=== PATIENT | male | born 2000 | race Caucasian/White ===

== ENCOUNTER 2020-09-10 12:27 | Emergency (ER) | payer MEDICAID, SELFPAY ==
[2020-09-10 12:29] VITALS: BP 125/67; PULSE 78; RESP 20; TEMP 36.8; O2SAT 100
--- NOTE | 2020-09-10 14:59 | ED.GENADULT ---
HPI - General Adult General Chief complaint: Unspecified Stated complaint: lumps in throat Time Seen by Provider: 09/10/20 14:33 Source: patient Mode of arrival: ambulatory Limitations: no limitations History of Present Illness HPI narrative: This is a 20 year old male that presents to the ER for lymphadenopathy. Reports he has had lymph nodes under his chin that have been swollen. Reports they recently became more swollen and are now painful. Also reports a mild sore throat. Denies fever, cough, congestion, or otalgia. Related Data Allergies Allergy/AdvReac Type Severity Reaction Status Date / Time AMOXICILLIN TRIHYDRATE Allergy Mild Hives / Uncoded 10/02/15 10:57 Red Face POTASSIUM CLAVULANATE Allergy Mild Hives / Uncoded 10/02/15 10:57 Red Face Review of Systems Review of Systems: Narrative: CONSTITUTIONAL: Denies fever ENT: Reports sore throat. Denies rhinorrhea, congestion, or otalgia. RESPIRATORY: Denies cough All systems reviewed & are unremarkable except as noted in HPI and below PMFSH Past Medical History Medical History (Updated 09/10/20 @ 16:59 by Ruby Puente PA-C) No active medical problems Social History Social History (Updated 09/10/20 @ 15:09 by Ruby Puente PA-C) Substance use: never Gender identity (if verbalized by the patient): Male Exam Narrative: Exam Narrative: GENERAL: Well-appearing, well-nourished, and in no acute distress. HEAD: Normocephalic, atraumatic. EYES: EOMI. ENT: Nares clear, no rhinorrhea or epistaxis. Mucous membranes moist. Oropharynx with symmetric tonsillar hypertrophy, no exudate or other lesions. Bilateral TMs pearly hodge non-bulging NECK: Supple. No masses. Small rubbery, mobile, lymph nodes in the submandibular region that are mildly inflammed. No erythema or warmth to the area CHEST: Clear to auscultation. No respiratory distress. No wheezes rales or rhonchi HEART: Regular rate and rhythm. No murmur heard. Normal peripheral pulses. EXTREMITIES: Normal range of motion. No edema. SKIN: Warm, dry, no rash. NEURO: No focal deficits. Alert and oriented x3. PSYCH: Normal mood and affect Course Vital Signs Vital signs: Vital Signs Temperature 98.3 F 09/10/20 12:29 Pulse Rate 78 09/10/20 12:29 Respiratory Rate 20 09/10/20 12:29 Blood Pressure 125/67 09/10/20 12:29 Pulse Oximetry 100 09/10/20 12:29 Temperature 97.8 F 09/10/20 15:15 Pulse Rate 72 09/10/20 15:15 Respiratory Rate 17 09/10/20 15:15 Blood Pressure 116/68 09/10/20 15:15 Pulse Oximetry 99 09/10/20 15:15 Medical Decision Making MDM Narrative Medical decision making narrative: Patient presents the emergency department for submandibular lymphadenopathy. Does have a few small, mobile, rubbery lymph nodes in the area. No overlying erythema or warmth. He is afebrile and nontoxic-appearing. CBC and metabolic panel without concerning findings. Strep screen and mono screen are negative. Patient was updated on case findings. Was instructed to follow up with primary care doctor. Was given warnings to return to the ER Vital Signs Vital Signs: Vital Signs Temperature 98.3 F 09/10/20 12:29 Pulse Rate 78 09/10/20 12:29 Respiratory Rate 20 09/10/20 12:29 Blood Pressure 125/67 09/10/20 12:29 Pulse Oximetry 100 09/10/20 12:29 Temperature 97.8 F 09/10/20 15:15 Pulse Rate 72 09/10/20 15:15 Respiratory Rate 17 09/10/20 15:15 Blood Pressure 116/68 09/10/20 15:15 Pulse Oximetry 99 09/10/20 15:15 Lab Data Lab results reviewed: Yes I reviewed the patient's lab results. Result diagrams: 09/10/20 15:11 09/10/20 15:11 Labs: Lab Results 09/10/20 09/10/20 09/10/20 Range/Units 15:11 15:11 15:11 WBC 6.0 (4.5-10.0) K/mm3 RBC 5.06 (4.6-6.20) M/mm3 Hgb 15.2 (14.0-18.0) g/dL Hct 45.4 (42.0-52.0) % MCV 89.7 (80-100) fl MCH 30.0 (26-34) pg MCHC 33.5 (32-36) g/dl RDW
[2020-09-10 15:15] VITALS: BP 116/68; PULSE 72; RESP 17; TEMP 36.6; O2SAT 99
[2020-09-10 15:19] LABS: Basophils Percent Auto 0.7 % (0.2-1.2); Eosinophils Absolute Auto 0.1 K/mm3 (0-0.3); Eosinophils Percent Auto 1.3 % (0-4.4); Hematocrit 45.4 % (42.0-52.0); Hemoglobin 15.2 g/dL (14.0-18.0); Immature Granulocyte Absolute 0.02 K/mm3 (0.00-0.031); Immature Granulocyte Percent A 0.3 % (0-0.5); Lymphocytes Absolute Auto 1.49 K/mm3 (0.9-3.2); Mean Corpuscular HGB Conc 33.5 g/dl (32-36); Mean Corpuscular Volume 89.7 fl (80-100); Mean Platelet Volume 11.4 fl (7.4-10.4); Monocytes Absolute Auto 0.5 K/mm3 (0.1-0.6); Monocytes Percent Auto 7.6 % (2.6-8.5); Neutrophils Absolute Auto 3.9 K/mm3 (1.3-6.7); Neutrophils Percent Auto 65.1 % (45.5-73.1); Platelet Count Result 225 k/mm3 (150-375); Red Blood Count 5.06 M/mm3 (4.6-6.20)
[2020-09-10 15:35] LABS: Alanine Aminotransferase 10 U/L (4-50); Albumin Level 4.6 g/dL (3.5-5.1); Alkaline Phosphatase 47 U/L (38-126); Anion Gap 7 mmol/L (8-16); Aspartate Amino Transferase 22 U/L (17-59); Bilirubin,Total 0.3 mg/dL (0.2-1.3); Blood Urea Nitrogen 17 mg/dL (9-20); Calcium 9.4 mg/dL (8.4-10.2); Carbon Dioxide 29 mmol/L (22-30); Chloride 104 mmol/L (98-107); Estimated CRCL calculation 111 ml/min; Estimated Glomerular Filt Rate > 60; Glucose 88 mg/dL (75-110); Potassium 4.9 mmol/L (3.4-5.0); Sodium 140 mmol/L (137-145)
[2020-09-10 17:01] LABS: Monoscreen Negative (Negative); Negative Monotest Control Negative (Negative); Positive Monotest Control Positive (Positive)
== END 2020-09-10 17:00 | disposition home or self-care (01) ==
PROVIDERS: Physician Assistant; Emergency Provider Emergency Medicine
DX: R59.1 Generalized enlarged lymph nodes (principal)
CPT/HCPCS: 36415; 80053; 85025; 86308; 87081; 87880; 99283

== ENCOUNTER 2020-10-09 10:59 | Emergency (ER) | payer MEDICAID, SELFPAY ==
--- NOTE | ~2020-10-09 | CT_ITS ---
EXAMINATION: CT soft tissue neck w con EXAM DATE: 10/09/2020 13:52 INDICATION: Submental mass/abscess. TECHNIQUE: Spiral CT of the neck was performed following intravenous injection of 75 mL Omnipaque 350 . Axial, coronal and sagittal images were reviewed. The dose-length product (DLP) for this examinat ion was 439.10 mGy-cm. The exposure was tailored according to patient size (auto mA exposure control ), and iterative reconstruction (ASIR) was used as additional dose reduction technique. There is no prior study for comparison. FINDINGS: There is bilobulated thick-walled cystic region measuring about 1.7 x 2.9 cm in size, with the larger lobulation located between the left digastric muscle anterior belly and the platysmas musc le, and the smaller portion appearing to be extending more superficially through the platysmas muscle . Abscess and/or necrotic lymph node. Submental lymphadenopathy with a lymph node on the right measur ing 1.4 x 1.2 cm. The thyroid gland is unremarkable. The submandibular and parotid glands are symmetric. The superi or mediastinum is unremarkable. The airway is unremarkable. Parapharyngeal and pre-glottic fat pl anes are preserved. The opacified vasculature is patent. The orbits are unremarkable. Visualize d sinuses and mastoid air cells are well aerated. Lung apices are clear. There is cervical spondyl osis. IMPRESSION: Left-sided submental cystic mass, could be abscess and/or necrotic lymph node. Reviewed, dictated and finalized at location A.
[2020-10-09 11:43] VITALS: BP 125/95; PULSE 72; RESP 16; TEMP 36.6; O2SAT 97
--- NOTE | 2020-10-09 12:14 | PC.NURSE ---
WARREN Garcia at bedside.
[2020-10-09 13:18] LABS: Basophils Percent Auto 0.3 % (0.2-1.2); Eosinophils Percent Auto 0.2 % (0-4.4); Hematocrit 38.7 % (42.0-52.0); Immature Granulocyte Absolute 0.02 K/mm3 (0.00-0.031); Immature Granulocyte Percent A 0.2 % (0-0.5); Lymphocytes Absolute Auto 1.18 K/mm3 (0.9-3.2); Lymphocytes Percent Auto 12.7 % (18.3-44.2); Mean Corpuscular HGB Conc 33.6 g/dl (32-36); Mean Corpuscular Hemoglobin 29.1 pg (26-34); Mean Corpuscular Volume 86.8 fl (80-100); Monocytes Absolute Auto 0.4 K/mm3 (0.1-0.6); Monocytes Percent Auto 4.3 % (2.6-8.5); Neutrophils Absolute Auto 7.7 K/mm3 (1.3-6.7); Neutrophils Percent Auto 82.3 % (45.5-73.1); Platelet Count Result 255 k/mm3 (150-375); Red Blood Count 4.46 M/mm3 (4.6-6.20); Red Cell Distribution Width 12.3 % (11.5-14.5); White Blood Count 9.3 K/mm3 (4.5-10.0)
[2020-10-09 13:29] LABS: Alanine Aminotransferase 13 U/L (4-50); Albumin Level 4.1 g/dL (3.5-5.1); Alkaline Phosphatase 56 U/L (38-126); Anion Gap 3 mmol/L (8-16); Aspartate Amino Transferase 29 U/L (17-59); Bilirubin,Total 0.3 mg/dL (0.2-1.3); Blood Urea Nitrogen 16 mg/dL (9-20); Calcium 8.9 mg/dL (8.4-10.2); Carbon Dioxide 28 mmol/L (22-30); Chloride 108 mmol/L (98-107); Estimated CRCL calculation 124 ml/min; Estimated Glomerular Filt Rate > 60; Glucose 102 mg/dL (75-110); Potassium 4.4 mmol/L (3.4-5.0); Sodium 139 mmol/L (137-145)
[2020-10-09 13:42] VITALS: BP 118/75; PULSE 72; RESP 18; O2SAT 100
--- NOTE | 2020-10-09 13:42 | PC.NURSE ---
CT updated on pt iv access
--- NOTE | 2020-10-09 14:40 | PC.NURSE ---
WARREN Garcia updated on pt results, to come and speak with pt.
--- NOTE | 2020-10-09 15:00 | ED.GENADULT ---
HPI - General Adult General Chief complaint: Neck Pain/Injury Stated complaint: inflamed lymph node in neck Time Seen by Provider: 10/09/20 12:10 Source: patient Mode of arrival: ambulatory Limitations: no limitations History of Present Illness HPI narrative: Patient is 20 years old white male presents with a lump at the submental area started few weeks ago. Was seen in our emergency room 1 week ago, back again today because of increased pain and swelling. Patient denies any fever, chills, nausea, vomiting, headache, shortness of breath, trouble swallowing or breathing. Patient also denies any sore throat, ear aches or trouble hearing. Related Data Home Medications Medication Instructions Recorded Confirmed No Home Medications 10/09/20 10/09/20 Allergies Allergy/AdvReac Type Severity Reaction Status Date / Time AMOXICILLIN TRIHYDRATE Allergy Mild Hives / Uncoded 10/09/20 11:43 Red Face POTASSIUM CLAVULANATE Allergy Mild Hives / Uncoded 10/09/20 11:43 Red Face Review of Systems Review of Systems: Narrative: CONSTITUTIONAL: Denies fever, chills, or sweats. EYES: Denies visual changes, redness, or discharge. ENT: Denies rhinorrhea, congestion, sore throat, or otalgia. CARDIOVASCULAR: Denies chest pain, palpitations, or edema. RESPIRATORY: Denies cough or dyspnea. GASTROINTESTINAL: Denies abdominal pain, nausea, vomiting, or diarrhea. GENITOURINARY: Denies dysuria or hematuria. SKIN: Denies rash or itching. MUSCULOSKELETAL: Denies back pain, joint pain, or myalgia. NEUROLOGIC: Denies headache, numbness, or weakness. PSYCHIATRIC: Denies anxiety or depression. PMFSH Past Medical History Medical History No active medical problems Social History Social History Substance use: never Gender identity (if verbalized by the patient): Male Exam Narrative: Exam Narrative: General appearance: Well-developed, well-nourished Skin: Normal color, large tender cystic-like lesion under the chin, is warm, slightly erythematous, no opening or discharge. No surrounding dependent. No intraoral lesion or abnormality Head: Normocephalic, nontraumatic Eyes: Clear conjunctiva ENT: Oropharynx normal, ears normal, nose normal Neck: Supple, nontender Chest and respiratory: Airway patent, no respiratory distress, no accessory muscle use Heart: Regular rate/rhythm Neurologic: Alert and oriented ?3, HUMAN FACTORS SCIENTIST is normal as tested, no gross motor deficit Course Course Emergency Course: Stable Vital Signs Vital signs: Vital Signs Temperature 36.6 C 10/09/20 11:43 Pulse Rate 72 10/09/20 11:43 Respiratory Rate 16 10/09/20 11:43 Blood Pressure 125/95 H 10/09/20 11:43 Pulse Oximetry 97 10/09/20 11:43 Temperature 36.6 C 10/09/20 11:43 Pulse Rate 72 10/09/20 13:42 Respiratory Rate 18 10/09/20 13:42 Blood Pressure 118/75 10/09/20 13:42 Pulse Oximetry 100 10/09/20 13:42 Medical Decision Making MDM Narrative Medical decision making narrative: Submental cystic lesion. Abscess versus lymph nodes is my concern. Labs, CT neck with IV contrast ordered. Further plan to follow Differential Diagnosis Differential Diagnosis: Abscess versus necrotic lymph nodes Vital Signs Vital Signs: Vital Signs Temperature 36.6 C 10/09/20 11:43 Pulse Rate 72 10/09/20 11:43 Respiratory Rate 16 10/09/20 11:43 Blood Pressure 125/95 H 10/09/20 11:43 Pulse Oximetry 97 10/09/20 11:43 Temperature 36.6 C 10/09/20 11:43 Pulse Rate 72 10/09/20 13:42 Respiratory Rate 18 10/09/20 13:42 Blood Pressure 118/75
[2020-10-09] MEDS: ACETAMINOPHEN 325 MG TABLET 650 MG PO (15:24)
[2020-10-09 15:25] VITALS: BP 118/75; PULSE 67; RESP 16; O2SAT 99
[2020-10-09] MEDS: IBUPROFEN 600 MG TABLET PO (15:25)
== END 2020-10-09 15:26 | disposition home or self-care (01) ==
PROVIDERS: Emergency Provider Emergency Medicine
DX: L02.01 Cutaneous abscess of face (principal)
CPT/HCPCS: 36415; 70491; 80053; 85025; 99283; A9270; Q9967

== ENCOUNTER → 2020-10-14 02:26 | Outpatient (CLI) | payer MEDICAID, SELFPAY ==
[2020-10-14 19:42] LABS: SARS-CoV-2 RNA PCR Negative
== END ==
PROVIDERS: Visit Provider Plastic Surgery
DX: Z01.812 Encounter for preprocedural laboratory examination (principal); Z20.822 Contact with and (suspected) exposure to COVID-19
CPT/HCPCS: C9803; U0003; U0005

== ENCOUNTER 2020-10-17 00:47 | Day surgery (SDC) | payer MEDICAID, SELFPAY ==
[2020-10-14 08:46] VITALS: BMI 21.4
--- NOTE | 2020-10-16 13:06 | WPDANESEPPF ---
Anes - Initial Pre Proc Eval Procedure: Operation Date: 10/17/20 07:30 Proposed Procedures p Incision and Drainage Fluid Mass of Submental Neck - Gonzalez Toussaint MD Date/Time: 10/16/20 13:06 Surgeon: Gonzalez Toussaint MD Pre Op Diagnosis: submental subq cystic mass Patient Data Age: 20 Gender: M Height: 5 ft 10 in Weight: 68 kg Allergies Allergy/AdvReac Type Severity Reaction Status Date / Time AMOXICILLIN TRIHYDRATE Allergy Mild Hives / Uncoded 10/17/20 06:20 Red Face POTASSIUM CLAVULANATE Allergy Mild Hives / Uncoded 10/17/20 06:20 Red Face Home Medications Medication Instructions Recorded Confirmed Type No Home Medications 10/09/20 10/17/20 History Patient hx anesthesia problems: none Family hx anesthesia problems: none PMFSH Past Medical History Medical History (Updated 10/16/20 @ 13:05 by Meek Wyman MD) Migraine No active medical problems Social History Social History Tobacco type: e-cigarettes/vaping Alcohol intake: never Substance use: never Substance use type: marijuana Other substance usage details: ABOUT 1G/DAY Last use: 10/13/20 Living arrangements: with family Gender identity (if verbalized by the patient): Male Spiritual care concerns: No Anes - Eval Final PreProcedure Day of Procedure 10/16/20 13:06 Patient weight: normal Lungs: clear to auscultation Airway: Mallampati scale class II Neurological: alert and oriented Last oral intake: >/= 8 hours ASA classification: II Emergent: no Anesthetic plan: proceed Anesthesia type and monitoring: general LMA and standard monitoring Informed Consent: The patient's anesthetic plan and its attendant risks and benefits were discussed with the patient/family/POA. Questions were solicited and answers provided to the satisfaction of the patient/family/POA.
[2020-10-17] VITALS (10 sets, daily range): BP systolic 99–129; BP diastolic 63–81; PULSE 40–57; RESP 14–16; TEMP 36.1–36.2; O2SAT 98–100
[2020-10-17] MEDS: LACTATED RINGERS 1,000 ML 30 ML IV CONT (06:29)
--- NOTE | 2020-10-17 07:13 | WPDHPUPDATE1 ---
History and Physical Update Update Date/Time: 10/17/20 07:13 History and Physical has been reviewed, including an updated exam of the patient. There are NO changes in the patient's condition. Risks, benefits, and alternatives have been discussed and questions answered. Patient agrees to proceed with procedure.
[2020-10-17] MEDS: LIDO 1%/EPINEPHRINE 1:100,000 50 ML VIAL INFILTRATE (07:25)
--- NOTE | 2020-10-17 08:16 | PM.OP ---
Procedure Note - Brief Procedure Note - Brief Date of procedure: 10/17/20 Pre-op diagnosis: submental subq cystic mass Post-op diagnosis: other (Submuscular submental abscess) Procedure performed: I&D 3 cm submuscular abscess. Anesthesia: GLMA Surgeon: Gonzalez Toussaint MD Animal Eviscerator: Ty Vences Estimated blood loss (mL): 2 Drains: Yes Packing: No Pathology: yes Complications: No immediate complications Condition: stable Disposition: PACU
--- NOTE | 2020-10-17 09:01 | SUR.PHASEI ---
[id number]- Call to Dr. Wyman to make him aware patient's HR into 30's intermittently with vital signs stable otherwise. Patient sinus bradycardic 40-50's. [address] Dr. Wyman continue to monitor.
[2020-10-17] MEDS: fentaNYL CITRATE INJ (*CRX) 100 MCG/2 ML VIAL 25 MCG IV PUSH ×2 (09:05→09:15)
--- NOTE | 2020-10-17 09:19 | P.OP_ITS ---
Procedure Note - Detailed Date of procedure: 10/17/20 Pre-op diagnosis: submental subq cystic mass Post-op diagnosis: other (The submuscular, submental abscess) Procedure performed: I and D of submuscular submental abscess Description of procedure: The site below the chin was marked on the patient in the holding area. He was taken to the operating room and placed supine on the operating table. A time-out was held and confirmed. He was given LMA sedation anesthetic. The site was prepped and draped in usual fashion. Small portion of andrade was shaved. The site was locally infiltrated with 1% lidocaine with epinephrine. A transverse incision was made as marked through the skin into subcutaneous tissue where creamy light brown pus was identified. This was cultured. The abscess extended deep to the platysma. According to the CAT scan it overlay the anterior belly of the digastric with no additional extension. We were able to express pus from that area. This area was irrigated with saline. Digital exam to the floor of the mouth did not reveal any additional submental mass. A 1 in piece of quarter-inch Wolbach was sutured to the wound as a drain. Bulky gauze was taped over that period he was discharged with instructions in wound care follow-up. No additional antibiotics are administered. The patient has a single dose for later today. He has been on antibiotics for a week. Anesthesia: GLMA Surgeon: Gonzalez Toussaint MD Title Search Manager: Ty Vences Estimated blood loss (mL): 2 Drains: Yes Packing: No Pathology: yes Complications: No immediate complications Condition: stable Disposition: PACU
[2020-10-17] MEDS: oxyCODONE HCL (*CRX) 5 MG TAB IR PO (10:02)
== END 2020-10-17 10:23 | disposition home or self-care (01) ==
PROVIDERS: Visit Provider Plastic Surgery
PROC: (CPT 10060; principal; 2020-10-17 07:30)
DX: L02.11 Cutaneous abscess of neck (principal); F12.90 Cannabis use, unspecified, uncomplicated
CPT/HCPCS: 10060; 87070; 87075; 87205; A9270; J2250; J2405; J2704; J3010; J7120